=== PATIENT | male | born 2000 | race Caucasian/White ===

== ENCOUNTER 2018-06-24 17:29 | Emergency (ER) | payer SELFPAY ==
[~2018-06-24] VITALS: Ht 188 cm; Wt 60.8 kg
--- NOTE | 2018-06-24 18:32 | NUR ---
PT A/OX4, PRESENTS TO THE ER W/ MULTIPLE COMPLAINTS. PRIMARY COMPLAINT: COUGH THAT STARTED YESTERDA (06/23/18). SECONDARY COMPLAINT: LOWER BACK PAIN THAT STARTED YESTERDAY, NON-PROVOKING, ACHING IN QUALITY, DOES NOT RADIATE, 11/17, CONSTANT. TERTIARY COMPLAINT: HEADACHE. ONSET TIME SAME PRIMARY AND SECONDARY. PT DENIES C/P, SOB, N/V/D.
--- NOTE | 2018-06-24 19:07 | NUR ---
JAKE MACKEY AT BEDSIDE FOR MSE.
--- NOTE | 2018-06-24 19:07 | NUR ---
SHIFT REPORT GIVEN TO EDWIN RUSSELL.
--- NOTE | 2018-06-24 19:10 | NUR ---
Dr. Le at bedside for MSE.
[2018-06-24] MEDS ORDERED: IBUPROFEN 600 MG TABLET PO ONE (19:15)
[2018-06-24] MEDS ORDERED: IBUPROFEN 600 MG TABLET ONE (19:16)
[2018-06-24] MEDS ORDERED: ACETAMINOPHEN ES 500 MG TABLET PO ONE (19:30)
[2018-06-24] MEDS ORDERED: ACETAMINOPHEN ES 500 MG TABLET ONE (19:32)
--- NOTE | 2018-06-24 19:34 | NUR ---
Patient discharged to home in stable conditon. Written and verbal after care instructions given. Patient verbalizes understanding of instructions. Patient ambulated out of ER with stable gait. All belongings taken.
[2018-06-24 19:37] VITALS: BP 106/74
== END 2018-06-24 19:35 | disposition home or self-care (01) ==
LOC: ER 17:29
DX: J11.1 Influenza due to unidentified influenza virus with other respiratory manifestations (principal); J45.909 Unspecified asthma, uncomplicated
CPT/HCPCS: A4663; A9150